=== PATIENT | male | born 1975 | race Caucasian/White ===

== ENCOUNTER → 2017-09-15 | Outpatient (CLI) | payer BC | LOC: COL.PUL 09:46 | DX: R06.02 Shortness of breath (principal) ==

== ENCOUNTER 2022-08-08 12:12 | Day surgery (SDC) | payer BC, OTHER ==
[~2022-08-08] VITALS: Ht 200.7 cm; Wt 158.3 kg
[2022-08-08] MEDS ORDERED: BRILINTA60 MG PO (12:47)
[2022-08-08] MEDS ORDERED: GLUCOPHAGE XR500 M1 PO ×2 (13:02)
[2022-08-08] MEDS ORDERED: CELEBREX 1100 MG/CAP PO (13:03)
[2022-08-08] MEDS ORDERED: COLCRYS0.6 MG PO (13:04)
[2022-08-08] MEDS ORDERED: FLEXERIL 1010 MG/TAB PO (13:04)
[2022-08-08] MEDS ORDERED: PLAQUENIL 200M200 MG PO (13:04)
[2022-08-08] MEDS ORDERED: REPATHA SU140 MG/1 M SQ (13:04)
[2022-08-08] MEDS ORDERED: PRINIVIL10 MG PO (13:05)
[2022-08-08] MEDS ORDERED: FLOMAX 0.40.4 MG/CAP PO (13:05)
[2022-08-08] MEDS ORDERED: COREG12.5 MG PO (13:05)
[2022-08-08] MEDS ORDERED: JARDIANCE10 PO (13:06)
[2022-08-08] MEDS ORDERED: SYNTHROID0.05 MG/TA PO (13:06)
[2022-08-08] MEDS ORDERED: NEURONTIN300 MG/CAP PO (13:06)
[2022-08-08] MEDS ORDERED: ALBUTEROL0.83 MG/ML IH (13:07)
[2022-08-08] MEDS ORDERED: PROTONIX 40MG T40 MG PO (13:07)
[2022-08-08] MEDS ORDERED: THEO-DUR 3300 MG/TAB PO (13:08)
[2022-08-08] MEDS ORDERED: NATURAL IRON65 MG PO (13:09)
[2022-08-08] MEDS ORDERED: ZYRTEC 10MG10 MG PO (13:09)
[2022-08-08] MEDS ORDERED: ASPIRIN 81M81 MG/TA2 PO (13:09)
[2022-08-08] MEDS ORDERED: TRELEGY ELLIPT1 EACH IH (13:09)
[2022-08-08 13:19] VITALS: BP 133/66; PULSE 91; TEMP 97.2
[2022-08-08 14:40] VITALS: BP 114/48; PULSE 90; TEMP 97.8
[2022-08-08 14:45] VITALS: BP 101/65; PULSE 89
[2022-08-08 15:00] VITALS: BP 113/58; PULSE 84
[2022-08-08 15:15] VITALS: BP 112/57; PULSE 85; TEMP 97.4
--- NOTE | 2022-08-08 15:55 | NUR ---
1430 RECEIVED REPORT FROM MARCELA CARO, FROM PACU. 1440 PT RETURNED TO BAY 2. PT IS ALERT AND ANSWERING QUESTIONS APPROPRIATELY, BREATHING EVEN AND UNLABORED. PT GIVEN A DIET PEPSI AND BLUEBERRY MUFFIN TOLERATED PO INTAKE WELL 1530 PT EDUCATIONAL MATERIAL AND PHYSICIAN DISCHARGE INSTRUCTIONS REVIEWED W/ PT AND HIS FAMILY. QUESTIONS INVITED AND ANSWERED. PT GIVEN A URINAL, LEG BAG AND ALCOHOL PREP PADS FOR CHANGING VITAL BAG AND LEG BAG AT HOME. PT IS FAMILIAR WITH CHANGING AND CARING FOR VITAL BAGS. HE HAS RECENTLY USED THESE, FOR SAME PROCEDURE. 1555 PT TO LOBBY VIA WHEEL CHAIR FOR RIDE HOME WITH FAMILY IN [facility].
[2022-08-08 16:41] VITALS: BP 114/48; PULSE 89; TEMP 97.8
== END 2022-08-08 15:55 | disposition home or self-care (01) ==
LOC: SDCO 12:12
DX: N35.914 Unspecified anterior urethral stricture, male (principal); L90.0 Lichen sclerosus et atrophicus; Z87.442 Personal history of urinary calculi; Z87.891 Personal history of nicotine dependence
CPT/HCPCS: C1769; C1894; J0690; J1100; J2405; J2704; J3010; J7120